=== PATIENT | male | born 1955 | race Caucasian/White ===

== ENCOUNTER 2023-04-07 00:45 | Emergency (ER) | payer MEDICARE ==
[2023-04-07] MEDS ORDERED: diphenhydrAMINE 50 MG/ML 1 ML VIAL IVP STA (01:02)
[2023-04-07] MEDS ORDERED: methylPREDNISolone SOD SUCCI 125 MG/2 ML VIAL IV STA (01:02)
[2023-04-07] MEDS ORDERED: FAMOTIDINE 20 MG/2 ML VIAL IV STA (01:02)
[2023-04-07] MEDS ORDERED: SODIUM CHLORIDE 0.9% 1,000 ML IV STA (01:03)
[2023-04-07] MEDS ORDERED: ONDANSETRON 4 MG/2 ML VIAL IVP STA (01:04)
--- NOTE | 2023-04-07 01:19 | ED ---
General Adult HPI - General Chief complaint: Allergic Reaction Stated complaint: allergic reaction Time Seen by Provider: 04/07/23 00:55 Source: patient, RN notes reviewed, old records reviewed Mode of arrival: ambulatory - History of Present Illness Initial comments: Patient is a 67-year-old male who presents emergency Department complaining of ALLERGIC reaction. No known ALLERGIES. Ate calamari at a hotel restaurant earlier at approximate 7:30pm. At approximately 8:30 but he broke out in hives all over his body. They were itchy. Due to the Benadryl and Claritin with minimal improvement. States he had some abdominal discomfort but no nausea or vomiting. No shortness of breath or dyspnea. No difficulty breathing. No chest pain. Primary complaint at this time IV hives over his body. States that his symptoms seem to be worsening. Hives primarily in the upper thighs as well as the arms. Some of his abdomen as well. They itch. Symptoms started approximately 4-5 hours prior to arrival. - Related Data Previous Rx's Medication Instructions Recorded Famotidine [Pepcid] 20 mg PO DAILY 7 Days #7 tablet 04/07/23 diphenhydrAMINE [Benadryl] 25 mg PO TID PRN 7 Days #21 capsule 04/07/23 Allergies Allergy/AdvReac Type Severity Reaction Status Date / Time No Known Allergies Allergy Verified 04/07/23 00:54 Review of Systems ROS Statement: Those systems with pertinent positive or pertinent negative responses have been documented in the HPI. Review of Systems: CONST: Denies fever EYES: Denies blurry vision ENT: Denies nasal congestion C/V: Denies Chest pain RESP: Denies shortness of breath GI: Denies abdominal pain : Denies dysuria SKIN: Endorses hives MSK: Denies joint pain. NEURO: Denies headache ROS Other: All systems not noted in ROS Statement are negative. Past Medical History Past Medical History: Hypertension History of Any Multi-Drug Resistant Organisms: None Reported Past Surgical History: Cholecystectomy, Hernia Repair Past Psychological History: Depression Smoking Status: Never smoker Past Alcohol Use History: None Reported Past Drug Use History: None Reported General Exam - General Exam Comments Initial Comments: General: Appears in no acute distress. HEAD: Normal with no signs of head trauma. EYES: PERRLA, EOMI, conjunctiva normal, no discharge. ENT: Hearing grossly intact, normal oropharynx. No stridor auscultated. Uvula midline. No tongue swelling. RESPIRATORY: Clear breath sounds bilaterally. No wheezes, rales, or rhonchi. C/V: Regular rate and rhythm. S1 and S2 auscultated, no edema, peripheral pulses 2+ and intact throughout ABD: Abd is soft, nontender, nondistended EXT: Normal range of motion, no obvious deformity SKIN: Patient has hives located all over his body. Likely ALLERGIC in nature. Primarily on the upper extremities as well as lower extremities and abdomen. Patient states they are pruritic. NEURO: Alert and oriented x 4. Cranial nerves II-XII intact. No focal sensory or strength deficits. Course Vital Signs 04/07/23 04/07/23 04/07/23 00:50 01:54 02:45 Temperature 97.5 F L Pulse Rate 69 67 67 Respiratory 16 18 18 Rate Blood Pressure 121/81 124/79 133/82 O2 Sat by Pulse 100 98 98 Oximetry 04/07/23 02:58 Temperature 98.2 F Pulse Rate Respiratory Rate Blood Pressure O2 Sat by Pulse Oximetry Medical Decision Making - Medical Decision Making Was pt. sent in by a medical professional or institution (, PA, PNEUMATIC SYSTEMS OPERATOR, urgent care, hospital, or assisted...) When possible be specific @ -No Did you speak to anyone other than the patient for history (EMS, parent, family, police, friend...)? What history was obtained from this source @ -No Did you review nursing and triage notes (agree or disagree)? Why? @ -I reviewed and agree with nursing and triage notes Were old charts reviewed (outside hosp., previous admission, EMS record, old EKG , old radiological studies, urgent care reports/EKG's, assisted records)? Report findings @ -No old charts were reviewed Differential Diagnosis (chest pain, altered mental status, abdominal pain women, abdominal pain men, vaginal bleeding, weakness, fever, dyspnea, syncope, headache, dizziness, GI bleed, back pain, seizure, CVA, palpatations, mental health, musculoskeletal)? @ -ALLERGIC reaction, anaphylaxis, hives, this list is not all inclusive. EKG interpreted by me (3pts min.). @ -None done X-rays interpreted by me (1pt min.). @ -None done CT interpreted by me (1pt min.). @ -None done U/S interpreted by me (1pt. min.). @ -None done What testing was considered but not performed or refused? (CT, X-rays, U/S, labs)? Why? @ -None What meds were considered but not given or refused? Why? @ -None Did you discuss the management of the patient with other professionals (professionals i.e. , PA, PNEUMATIC SYSTEMS OPERATOR, lab, RT, psych nurse, licensed master social worker, billposter, teacher, animal park code enforcement officer, lead case manager)? Give summary @ -No Was smoking cessation discussed for >3mins.? @ -No Was critical care preformed (if so, how long)? @ -No Were there social determinants of health that impacted care today? How? (Homelessness, low income, unemployed, alcoholism, drug addiction, transportation, low edu. Level, literacy, decrease access to med. care, penitentiary, rehab)? @ -No Was there de-escalation of care discussed even if they declined (Discuss DNR or withdrawal of care, Hospice)? DNR status @ -No What co-morbidities impacted this encounter? (DM, HTN, Smoking, COPD, CAD, Cancer, CVA, ARF, Chemo, Hep., AIDS, mental health diagnosis, sleep apnea, morbid obesity)? @ -None Was patient admitted / discharged? Hospital course, mention meds given and route, prescriptions, significant lab abnormalities, going to OR and other pertinent info. @ -Based on the patient's presentation and physical exam, he presents with what appears to be an ALLERGIC reaction. Symptoms started 4-5 hours prior to arrival. Likely secondary to eating calamari. No prior history of ALLERGIC reaction. No concern for anaphylaxis at this time. Exam unremarkable except for the hives. We will obtain basic labs and treat him with IV fluids, Benadryl, famotidine, Solu-Medrol. We will observe the patient here in the department. He'll be connected to continuous cardiac monitoring with pulse oximetry. He was in agreement this plan. Vital signs currently within acceptable limits. Patient's labs are within acceptable limits. On reevaluation, patient's rash is improving. Symptoms are improving. His overall feeling improved. No evidence of anaphylaxis once again. Vital signs remained within acceptable limits. I discussed with him as workup. I believe he will likely be discharged home. We will attempt to orally challenged him with food and he was in agreement. Patient tolerated by mouth challenge. He'll be discharged home at this time. He'll be given prescriptions for famotidine as well as Benadryl. Strict return precautions discussed. He was in agreement this plan. I will provide the patient with a prescription for Pepcid, Benadryl. I instructed the patient to follow up with their PCP in the next 1-3 days. I explained that the patient should return to the emergency department if they experience any worsening symptoms. Strict return precautions were discussed with the patient. The patient expressed understanding of these instructions. I answered all questions that the patient had. The patient was discharged home in good condition with their prescriptions and follow up information. Undiagnosed new problem with uncertain prognosis? @ -No Drug Therapy requiring intensive monitoring for toxicity (Heparin, Nitro, Insulin, Cardizem)? @ -No Were any procedures done? @ -No Diagnosis/symptom? @ -ALLERGIC reaction Acute, or Chronic, or Acute on Chronic? @ -Acute Uncomplicated (without systemic symptoms) or Complicated (systemic symptoms)? @ -Complicated Side effects of treatment? @ -No Exacerbation, Progression, or Severe Exacerbation? @ -No Poses a threat to life or bodily function? How? (Chest pain, [place], [place], pneumonia, PE, COPD, DKA, ARF, appy, cholecystitis, CVA, Diverticulitis, Homicidal, Suicidal, threat to staff... and all critical care pts) @ -No - Lab Data Result diagrams: 04/07/23 01:21 04/07/23 01:21 Lab Results 04/07/23 04/07/23 Range/Units 01:21 01:21 WBC 14.5 H (3.8-10.6) k/uL RBC 6.41 H (4.30-5.90) m/uL Hgb 17.9 H (13.0-17.5) gm/dL Hct 52.9 (39.0-53.0) % MCV 82.6 (80.0-100.0) fL MCH 28.0 (25.0-35.0) pg MCHC 33.9 (31.0-37.0) g/dL RDW 14.6 (11.5-15.5) % Plt Count 204 (150-450) k/uL MPV 8.0 Neutrophils % 79 % Lymphocytes % 16 % Monocytes % 4 % Eosinophils % 0 % Basophils % 0 % Neutrophils # 11.5 H (1.3-7.7) k/uL Lymphocytes # 2.3 (1.0-4.8) k/uL Monocytes # 0.5 (0-1.0) k/uL Eosinophils # 0.0 (0-0.7) k/uL Basophils # 0.0 (0-0.2) k/uL Sodium 139 (137-145) mmol/L Potassium 4.0 (3.5-5.1) mmol/L Chloride 104 (98-107) mmol/L Carbon Dioxide 24 (22-30) mmol/L Anion Gap 11 mmol/L BUN 28 H (9-20) mg/dL Creatinine 1.04 (0.66-1.25) mg/dL Est GFR (CKD-EPI)AfAm 87 (>60 ml/min/1.73 sqM) Est GFR (CKD-EPI)NonAf 75 (>60 ml/min/1.73 sqM) Glucose 114 H (74-99) mg/dL Calcium 9.3 (8.4-10.2) mg/dL Total Bilirubin 1.1 (0.2-1.3) mg/dL AST 28 (17-59) U/L ALT 32 (4-49) U/L Alkaline Phosphatase 65 (38-126) U/L Total Protein 7.1 (6.3-8.2) g/dL Albumin 4.4 (3.5-5.0) g/dL Disposition Clinical Impression: Allergic reaction Disposition: HOME SELF-CARE Condition: Good Prescriptions: diphenhydrAMINE [Benadryl] 25 mg PO TID PRN 7 Days #21 capsule PRN Reason: Rash Famotidine [Pepcid] 20 mg PO DAILY 7 Days #7 tablet Is patient prescribed a controlled substance at d/c from ED?: No Referrals: Vishal Esparza MD [Primary Care Provider] - 1-2 days Time of Disposition: 02:30
[2023-04-07 01:44] LABS: Basophils % (A) 0 %; Eosinophils % (A) 0 %; HCT 52.9 % (39.0-53.0); HGB 17.9 gm/dL (13.0-17.5); Lymphocytes # (A) 2.3 k/uL (1.0-4.8); Lymphocytes % (A) 16 %; MCHC 33.9 g/dL (31.0-37.0); MCV 82.6 fL (80.0-100.0); Monocytes # (A) 0.5 k/uL (0-1.0); Monocytes % (A) 4 %; Neutrophils # (A) 11.5 k/uL (1.3-7.7); Neutrophils % (A) 79 %; Platelet Count 204 k/uL (150-450); RBC 6.41 m/uL (4.30-5.90); RDW 14.6 % (11.5-15.5); WBC 14.5 k/uL (3.8-10.6)
[2023-04-07 01:53] LABS: Albumin 4.4 g/dL (3.5-5.0); Calcium 9.3 mg/dL (8.4-10.2); Total Bilirubin 1.1 mg/dL (0.2-1.3); Total Protein 7.1 g/dL (6.3-8.2)
[2023-04-07 02:46] VITALS: PULSE 67; RESP 18
[2023-04-07 02:47] VITALS: BP 133/82
[2023-04-07 02:58] VITALS: TEMP 98.2
== END 2023-04-07 02:58 | disposition home or self-care (01) ==
LOC: EC 00:45
DX: T78.40XA Allergy, unspecified, initial encounter (principal); I10 Essential (primary) hypertension
CPT/HCPCS: 36415; 80053; 85025; 99283; 96374; 96375 ×3; 96361 ×2; J1200; J2930; J2405